=== PATIENT | female | born 1970 | race Caucasian/White ===

== ENCOUNTER 2024-01-08 15:24 | Outpatient (CLI) | payer BC | END 2024-01-08 15:25 | disposition home or self-care (01) | LOC: CSHMAMMO 15:24 | PROVIDERS: ATTEND Physician Assistant Medical | DX: K52.9 Noninfective gastroenteritis and colitis, unspecified (principal); K90.0 Celiac disease; K57.92 Diverticulitis of intestine, part unspecified, without perforation or abscess without bleeding; M85.89 Other specified disorders of bone density and structure, multiple sites | CPT/HCPCS: 77080 ==

== ENCOUNTER 2024-11-08 08:43 | Outpatient (CLI) | payer BC | END 2024-11-08 08:44 | disposition home or self-care (01) | LOC: CSHULT 08:43 | PROVIDERS: ATTEND Internal Medicine | DX: R74.01 Elevation of levels of liver transaminase levels (principal) | CPT/HCPCS: 76705 ==

== ENCOUNTER 2024-11-19 10:30 | Outpatient (CLI) | payer BC | END 2024-11-19 10:31 | disposition home or self-care (01) | LOC: CSHMRI 10:30 | PROVIDERS: ATTEND Internal Medicine | DX: Z91.89 Other specified personal risk factors, not elsewhere classified (principal) | CPT/HCPCS: C8908 ==